=== PATIENT | male | born 1940 | race Caucasian/White ===

== ENCOUNTER 2021-09-18 09:36 | Observation (INO) ==
[2021-09-18] MEDS ORDERED: SODIUM CHLORIDE 0.9% 1000ML 1,000 ML IV SCH (09:45)
[2021-09-18] MEDS ORDERED: MAGNESIUM SULFATE / D5W 1 GM/100 ML BAG IV STA (09:46)
[2021-09-18] MEDS ORDERED: dilTIAZem HCl 5 MG/ML 5 ML VIAL IV STA ×2 (09:46→11:38)
--- NOTE | 2021-09-18 10:00 | Emergency Department Note ---
Impression & Plan Atrial fibrillation with rapid ventricular response, Heart palpitations ED Provider Note NAME: JINA CONLEY AGE: 81 SEX: M : 1940 ARRIVES VIA: Walk-In INFORMANT: Patient, ED PROVIDER(S): Alcon Warren DO CHIEF COMPLAINT: Palpitations HPI: The patient is an 81-year-old male who presented to the emergency department for an evaluation of palpitations. The patient started noticing palpitations over the last 2 to 3 weeks. He states he is also noticed some dizziness. He states he checked his heart rate and he was going [id number] bpm. He does not have any history of dysrhythmia in the past. He called his primary care physician today because of ongoing symptoms and was referred to the emergency department for further evaluation. The patient does not use alcohol excessively. He does not have a history of electrolyte abnormality or thyroid dysfunction. The patient states that he took medication for erectile dysfunction this morning at approximately 730. He denies having any fever. ROS: See above HPI for pertinent positives & negatives. A total of 10 systems r eviewed and were otherwise negative. PAST MEDICAL HISTORY: See Below PAST SURGICAL HISTORY: See Below FAMILY HISTORY: See Below SOCIAL HISTORY: See Below HOME MEDICATIONS: See Below ALLERGIES: See Below VITALS: See Below PHYSICAL EXAMINATION: GENERAL: Patient is awake alert in no acute distress patient is resting comfortably and showing no signs of anxiety EYES: The conjunctivae are clear. The pupils are round and reactive. EARS, NOSE, MOUTH AND THROAT: The nose is without any evidence of any deformity. Mucous membranes are moist. Tongue is midline. NECK: The neck is nontender and supple. RESPIRATORY: Normal respiratory effort is noted there is no evidence of wheezing rhonchi or rales CARDIOVASCULAR: Tachycardic and irregular heart sounds are noted auscultation. There is no definite murmur. GASTROINTESTINAL: The abdomen is soft. Abdomen is nontender. MUSCULOSKELETAL/EXTREMITIES: There is no evidence of gross deformity full range of motion is noted in the hips and shoulders. SKIN: There is no obvious evidence of any rash. There are no petechiae, pallor or cyanosis noted. NEUROLOGIC: Patient is awake alert and oriented x3 MEDICAL DECISION MAKING: The patient is an 81-year-old male who presented to the emergency department for an evaluation of palpitations. The patient states that he has been noticing symptoms for approximate 1 week. He had worsening symptoms today especially with exertion. He presented to the emergency department and was found to be in rapid atrial flutter/fibrillation. The patient was treated with IV fluids IV magnesium and IV Cardizem in the emergency department. He was reevaluated multiple times. I discussed the patient's laboratory and radiographic studies with him. I also discussed his case with the on-call [facility] hospitalist. They have agreed to evaluate the patient in the emergency department for further management and disposition. They will likely start the patient on a course of anticoagulation given his age and comorbidities. Triage Nursing notes reviewed. Prior medical records reviewed Vital Signs: reviewed and remarkable for tachycardia and hypertension. Differential diagnosis: Premature contractions, electrolyte abnormality, cardiac dysrhythmia, thyroid dysfunction, pulmonary embolism, infection, gastrointestinal, as well as other pathologies. ER treatment provided: See below Diagnostics interpreted by me: ECG: EKG was obtained in the emergency department. My interpretation is atrial fibrillation at 145 bpm. No PVCs were noted. Right bundle branch block pattern was noted. This was compared to a tracing from June 19, 2019. Sinus rhythm has been replaced with atrial fibrillation. The right bundle branch block pattern does not appear to be new. Cardiac Monitoring: An order was placed for continuous cardiac monitoring. The monitor shows a rate of 104 bpm with atrial fibrillation/flutter with RVR Laboratory studies: As stated above and show below. Imaging studies: See below Consultation(s): I discussed this case with Dr. Pantoja who is on-call for the [facility] [place] talist group. Past Med/Surg History Medical History BPH (benign prostatic hyperplasia) Right rotator cuff tear Umbilical hernia Surgical History H/O vasectomy History of left cataract surgery History of right cataract surgery Hx laparoscopic cholecystectomy Hx of local excision of skin lesion CALCIUM LUMP IN CALF Social History Smoking Status: Former smoker Second Hand Exposure: No; Do You Dip or Chew Tobacco: No; Tobacco Cessation Education Requested by Patient: No Hx Alcohol Use: Yes Alcohol type: wine Hx Substance Use: No Preferred Language: Bahraini Communication Ability: Effective Visual Impairment: No Limitations Condemnation Engineer Required: No Beliefs That Will Affect Care: None Current Living Situation: Spouse Other Information That Helps Us Care for You: No Feels Safe at Home: Yes Safety Concerns: Feels Safe At This Time Assistive Devices: Contacts Allergies Allergies Allergy/AdvReac Type Severity Reaction Status Date / Time bee venom protein (honey bee) Allergy Unknown HIVES/EDEMA Verified 09/18/21 12:13 simvastatin Allergy Unknown GI SYMPTOMS Verified 09/18/21 12:13 Home Meds Home Medications Medication Instructions Recorded Confirmed multivitamin (Daily Multi-Vitamin) 1 tab PO DAILY 06/02/19 09/18/21 Previous Rx's Medication Instructions Recorded sildenafil (pulm.hypertension) 20 20 mg PO DAILY #60 tab 05/31/21 mg tablet apixaban 5 mg tablet (Eliquis) 5 mg PO BID #60 tab 09/19/21 metoprolol succinate 100 mg 100 mg PO DAILY #30 tab 09/19/21 tablet,extended release 24 hr Results & Data (ED) Vital Signs Vital Signs - 24 hr 09/18/21 11:30 09/18/21 11:31 Pulse Rate 128 H 114 H Pulse Rate from SpO2 Sensor 78 Respiratory Rate 19 15 Blood Pressure 124/92 Blood Pressure Mean 102 Home Medications Current Medication List: was personally reviewed by me Laboratory Data Attestation: I reviewed the patient's lab results. Result diagrams: 09/18/21 09:55 09/18/21 09:55 Lab Results 09/18/21 09/18/21 09/18/21 Range/Units 09:55 09:55 09:55 WBC 6.66 (4.8-10.8) K/uL RBC 4.51 L (4.7-6.1) M/uL Hgb 13.9 L (14.0-18.0) g/dL Hct 41.6 L (42-52) % MCV 92.2 (80-100) fL MCH 30.8 (25-34) pg MCHC 33.4 (32-36) g/dL RDW Std Deviation 46.0 (36.4-46.3) fL RDW Coeff of Rustam 13.6 (11.5-14.5) % Plt Count 153 (130-400) K/uL MPV 10.5 H (7.4-10.4) fL Immature Gran % (Auto) 0.2 % Neut % (Auto) 64.1 % Lymph % (Auto) 24.5 % [place] % (Auto) 9.3 % Eos % (Auto) 1.7 % Baso % (Auto) 0.2 % Neut # (Auto) 4.28 (1.4-6.5) K/uL Lymph # (Auto) 1.63 (1.2-3.4) K/uL [place] # (Auto) 0.62 H (0.11-0.59) K/uL Eos # (Auto) 0.11 (0-0.5) K/uL Baso # (Auto) 0.01 (0-0.2) K/uL Immature Gran # (Auto) 0.01 (0.00-0.02) K/uL PT 11.1 (9.0-12.0) Seconds INR 1.0 (0.9-1.1) APTT 25.6 (21.0-31.0) Seconds PTT Ratio 0.9 Sodium 138 (136-145) mmol/L Potassium 4.4 (3.5-5.1) mmol/L Chloride 105 (98-107) mmol/L Carbon Dioxide 26 (21-32) mmol/L Anion Gap 7 (3-11) BUN 12 (6-23) mg/dl Creatinine 1.20 (0.6-1.4) mg/dl Est Cr Clr Drug Dosing 43.6 ml/min Est GFR ( Amer) 65.3 ml/min Est GFR (Non-Af Amer) 56.4 ml/min BUN/Creatinine Ratio 10.0 (10-20) Glucose 175 H (70-99(Fasting)) mg/dl Calcium 9.0 (8.5-10.1) mg/dl Magnesium 1.9 (1.7-2.4) mg/dl Total Bilirubin 0.5 (0.2-1.0) mg/dl AST 23 (13-39) U/L ALT 20 (7-52) U/L Alkaline Phosphatase 92 (34-104) U/L Troponin I High Sens 10.1 (0-20) pg/ml Total Protein 6.9 (6.0-8.3) gm/dl Albumin 4.2 (3.4-5.0) gm/dl Globulin 2.7 (2.5-4.0) gm/dl Albumin/Globulin Ratio 1.6 (0.9-2) TSH (0.300-4.500) uIu/ml SARS-CoV-2, RNA, NAAT (NEGATIVE) 09/18/21 09/18/21 Range/Units 09:55 10:30 WBC (4.8-10.8) K/uL RBC (4.7-6.1) M/uL Hgb (14.0-18.0) g/dL Hct (42-52) % MCV (80-100) fL MCH (25-34) pg MCHC (32-36) g/dL RDW Std Deviation (36.4-46.3) fL RDW Coeff of Rustam (11.5-14.5) % Plt Count (130-400) K/uL MPV (7.4-10.4) fL Immature Gran % (Auto) % Neut % (Auto) % Lymph % (Auto) % [place] % (Auto) % Eos % (Auto) % Baso % (Auto) % Neut # (Auto) (1.4-6.5) K/uL Lymph # (Auto) (1.2-3.4) K/uL [place] # (Auto) (0.11-0.59) K/uL Eos # (Auto) (0-0.5) K/uL Baso # (Auto) (0-0.2) K/uL Immature Gran # (Auto) (0.00-0.02) K/uL PT (9.0-12.0) Seconds INR (0.9-1.1) APTT (21.0-31.0) Seconds PTT Ratio Sodium (136-145) mmol/L Potassium (3.5-5.1) mmol/L Chloride (98-107) mmol/L Carbon Dioxide (21-32) mmol/L Anion Gap (3-11) BUN (6-23) mg/dl Creatinine (0.6-1.4) mg/dl Est Cr Clr Drug Dosing ml/min Est GFR ( Amer) ml/min Est GFR (Non-Af Amer) ml/min BUN/Creatinine Ratio (10-20) Glucose (70-99(Fasting)) mg/dl Calcium (8.5-10.1) mg/dl Magnesium (1.7-2.4) mg/dl Total Bilirubin (0.2-1.0) mg/dl AST (13-39) U/L ALT (7-52) U/L Alkaline Phosphatase (34-104) U/L Troponin I High Sens (0-20) pg/ml Total Protein (6.0-8.3) gm/dl Albumin (3.4-5.0) gm/dl Globulin (2.5-4.0) gm/dl Albumin/Globulin Ratio (0.9-2) TSH 1.928 (0.300-4.500) uIu/ml SARS-CoV-2, RNA, NAAT NEGATIVE (NEGATIVE) Administered Medications Apixaban (Apixaban 5 Mg Tablet) 5 mg PO BID RADHA Stop: 10/18/21 20:59 Last Admin: 09/19/21 08:24 Dose: 5 mg Documented by: [id number] Admin: 09/18/21 20:40 Dose: 5 mg Documented by: [id number] Metoprolol Succinate (Metoprolol Succ 50mg Ext Rel Tab) 100 mg PO QAM RADHA Stop: 10/19/21 08:59 Last Admin: 09/19/21 09:01 Dose: 100 mg Documented by: [id number] Discontinued Medications Apixaban (Apixaban 2.5 Mg Tab) 5 mg PO ONE STA Stop: 09/18/21 12:00 Last Admin: 09/18/21 12:30 Dose: 5 mg Documented by: [id number] Diltiazem HCl (Diltiazem Hcl 5 Mg/Ml 5 Ml Vial) 10 mg IV NOW STA Stop: 09/18/21 09:47 Last Admin: 09/18/21 10:20 Dose: 10 mg Documented by: [id number] Cosigned by: [id number] Diltiazem HCl (Diltiazem Hcl 5 Mg/Ml 5 Ml Vial) 10 mg IV NOW STA Stop: 09/18/21 11:39 Last Admin: 09/18/21 11:48 Dose: 10 mg Documented by: [id number] Cosigned by: [id number] Sodium Chloride (Nss 1000ml) 1,000 mls @ 999 mls/hr IV .Q1H1M RADHA Stop: 09/18/21 10:45 Last Infusion: 09/18/21 11:22 Dose: 0 mls/hr Documented by: [id number] Admin: 09/18/21 10:20 Dose: 999 mls/hr Documented by: [id number] Magnesium Sulfate/Dextrose (Magnesium Sulfate / D5w) 1 gm in 100 mls @ 100 mls/hr IV NOW STA Stop: 09/18/21 10:45 Last Infusion: 09/18/21 11:20 Dose: 0 mls/hr Documented by: [id number] Admin: 09/18/21 10:20 Dose: 100 mls/hr Documented by: [id number] Metoprolol Tartrate (Metoprolol Tartrate 25 Mg Tab) 25 mg PO ONE STA Stop: 09/18/21 12:00 Last Admin: 09/18/21 12:30 Dose: 25 mg Documented by: [id number] Metoprolol Tartrate (Metoprolol Tartrate 25 Mg Tab) 25 mg PO Q6H RADHA Stop: 10/18/21 17:59 Last Admin: 09/19/21 05:49 Dose: 25 mg Documented by: [id number] Admin: 09/18/21 23:55 Dose: 25 mg Documented by: [id number] Admin: 09/18/21 18:02 Dose: 25 mg Documented by: [id number] Imaging Data Radiologist's Impression: Chest X-Ray 09/18/21 09:44 SINGLE VIEW CHEST CLINICAL HISTORY: Generalized weakness. FINDINGS: An AP, portable, upright chest radiograph is compared to study dated 03/07/2021. The heart is mildly enlarged. The pulmonary vasculature is noncongested. Chronic interstitial thickening is similar to previous. No airspace consolidation or large pleural effusion is identified. No pneumothorax is seen. The skeletal structures are osteopenic. The bony thorax is grossly intact. Degenerative changes noted in the shoulders and thoracic spine. There is calcific tendinopathy of the left shoulder. IMPRESSION: No acute cardiopulmonary abnormality. ACT 112: Negative or not required by law. Electronically signed by: David Gaston M.D. 09/18/2021 10:49 AM Discharge Plan Visit Data Chief Complaint: Tachycardia Stated Complaint: TACHYCARDIA ED Provider: Alcon Warren Discharge Problem: Atrial fibrillation with rapid ventricular response, Heart palpitations Patient Disposition: Admitted As Inpatient Discharge Instructions Interventions: ED Discharge Assessment Last Done: 09/18/21 14:19
[2021-09-18 10:09] LABS: Basophils # (auto) 0.01 K/uL (0-0.2); Basophils % (auto) 0.2 %; Eosinophils # (auto) 0.11 K/uL (0-0.5); Eosinophils % (auto) 1.7 %; Hematocrit (blood only) 41.6 % (42-52); Hemoglobin 13.9 g/dL (14.0-18.0); Immature Granulocytes # (auto) 0.01 K/uL (0.00-0.02); Immature Granulocytes % (auto) 0.2 %; Lymphocytes # (auto) 1.63 K/uL (1.2-3.4); Lymphocytes % (auto) 24.5 %; Mean Corpuscular Hemoglobin 30.8 pg (25-34); Mean Corpuscular Hgb Conc 33.4 g/dL (32-36); Mean Corpuscular Volume 92.2 fL (80-100); Mean Platelet Volume 10.5 fL (7.4-10.4); Monocytes # (auto) 0.62 K/uL (0.11-0.59); Monocytes % (auto) 9.3 %; Neutrophils # (auto) 4.28 K/uL (1.4-6.5); Neutrophils % (auto) 64.1 %; Platelet Count 153 K/uL (130-400); RDW Coefficient of Variation 13.6 % (11.5-14.5); Red Blood Count 4.51 M/uL (4.7-6.1); White Blood Count 6.66 K/uL (4.8-10.8)
[2021-09-18 10:25] LABS: Partial Thromboplastin Ratio 0.9; Partial Thromboplastin Time 25.6 Seconds (21.0-31.0); Prothrombin Time 11.1 Seconds (9.0-12.0)
[2021-09-18 10:34] LABS: Troponin I High Sensitivity 10.1 pg/ml (0-20)
[2021-09-18 10:35] LABS: Albumin Globulin Ratio 1.6 (0.9-2); Albumin Level 4.2 gm/dl (3.4-5.0); Bilirubin,Total 0.5 mg/dl (0.2-1.0); Creatinine Clr Calc Pharmacy 43.6 ml/min; Est GFR (African American) 65.3 ml/min; Est GFR (Non-African American) 56.4 ml/min; Globulin 2.7 gm/dl (2.5-4.0); Magnesium 1.9 mg/dl (1.7-2.4); Potassium 4.4 mmol/L (3.5-5.1); Total Protein 6.9 gm/dl (6.0-8.3)
--- NOTE | 2021-09-18 10:52 | XRay Report ---
SINGLE VIEW CHEST CLINICAL HISTORY: Generalized weakness. FINDINGS: An AP, portable, upright chest radiograph is compared to study dated 03/07/2021. The heart i s mildly enlarged. The pulmonary vasculature is noncongested. Chronic interstitial thickening is leonor lar to previous. No airspace consolidation or large pleural effusion is identified. No pneumothorax i s seen. The skeletal structures are osteopenic. The bony thorax is grossly intact. Degenerative cook es noted in the shoulders and thoracic spine. There is calcific tendinopathy of the left shoulder. IMPRESSION: No acute cardiopulmonary abnormality. ACT 112: Negative or not required by law. Electronically signed by: David Gaston M.D. 09/18/2021 10:49 AM
[2021-09-18] MEDS ORDERED: METOPROLOL TARTRATE 25 MG TAB PO STA (11:59)
[2021-09-18] MEDS ORDERED: APIXABAN 2.5 MG TAB PO STA (11:59)
--- NOTE | 2021-09-18 12:12 | History & Physical Report ---
Date of Service September 18, 2021 Assessment & Plan (1) Atrial fibrillation with RVR: Plan: Metoprolol 25 mg p.o. every 6 hourly, metoprolol 5 mg IV every 4 hourly as needed for heart rate greater than 120. [id number] -recommend anticoagulation with Eliquis 5 mg p.o. twice daily first dose now. Admit to PCU as may need intravenous diltiazem TTE TSH WNL Plan: VTE prophylaxis -Eliquis Diet -heart healthy Disposition -admit to PCU Admission and Anticipated Discharge Date Admission Date: September 18, 2021 History of Present Illness Chief Complaint: Elevated heart rate Primary Care Provider: Liz Landeros DO Mat Aparicio is an 81 year old male who presents to the ER with increased heart rate for the last 6 days. He noticed this on his blood pressure monitor which also measures his heart rate. He denies any chest pain, shortness of breath, palpitations, orthopnea, PND, claudication, presyncope or syncope. No recent infection symptoms. He has no prior diagnosis of any heart conditions or atrial fibrillation. In the ER he was noted to be in atrial fibrillation with rapid ventricular rates. He was given diltiazem 10 mg IV x2 with improvement of his rates and occasional sinus beats to 90 bpm. He was referred to medicine for admission ongoing management of atrial fibrillation with rapid ventricular rate. Allergies Allergy/AdvReac Type Severity Reaction Status Date / Time bee venom protein (honey bee) Allergy Unknown HIVES/EDEMA Verified 09/18/21 12:13 simvastatin Allergy Unknown GI SYMPTOMS Verified 09/18/21 12:13 Home Medications Medication Instructions Recorded Confirmed Type multivitamin (Daily Multi-Vitamin) 1 tab PO DAILY 06/02/19 09/18/21 History sildenafil (pulm.hypertension) 20 20 mg PO DAILY #60 tab 05/31/21 09/18/21 Rx mg tablet Past Med/Surg History Medical History BPH (benign prostatic hyperplasia) Right rotator cuff tear Umbilical hernia Surgical History H/O vasectomy History of left cataract surgery History of right cataract surgery Hx laparoscopic cholecystectomy Hx of local excision of skin lesion CALCIUM LUMP IN CALF Social History Smoking Status: Former smoker Second Hand Exposure: No; Do You Dip or Chew Tobacco: No; Tobacco Cessation Education Requested by Patient: No Hx Alcohol Use: Yes Alcohol type: wine Hx Substance Use: No Preferred Language: Danish Communication Ability: Effective Visual Impairment: No Limitations Manager Floral Required: No Beliefs That Will Affect Care: None Current Living Situation: Spouse Other Information That Helps Us Care for You: No Feels Safe at Home: Yes Safety Concerns: Feels Safe At This Time Assistive Devices: Contacts Review of Systems Review of Systems: All systems reviewed & are unremarkable except as noted in HPI & below Physical Exam Constitutional: WD/WN, vitals as above ENMT: external ear and nose normal, oropharynx normal Neck: trachea midline, no thyromegaly Respiratory: normal respiratory effort, lungs clear to auscultation Cardiovascular: Rate/Rhythm: regular rate and + irregularly irregular Heart Sounds: no murmur Extremities: normal capillary refill; no calf tenderness and no pedal edema Gastrointestinal (Abdomen): normal bowel sounds, soft, nontender, no hepatosplenomegaly Musculoskeletal: no cyanosis or clubbing, extremities motor strength 5/5 Skin: no rashes, warm and dry Neurologic: moves all extremities and awake; not confused Psychiatric: A+Ox3, euthymic affect Results & Data Results & Data ([facility]) Vital Signs (Past 12 Hours) Vital Signs Temp Pulse Resp BP Pulse Ox 09/18/21 11:31 114 H 15 124/92 09/18/21 11:30 128 H 19 09/18/21 11:00 120 H 16 147/80 H 94 09/18/21 10:30 103 H 15 128/76 09/18/21 10:00 150 H 18 97 09/18/21 09:38 36.8 C 150 H 18 144/83 H 97 Code Status & VTE Plan Code Status Full VTE Prophylaxis Plan VTE Prophylaxis will be ordered: Yes PG Care Time/CCT Total # of Minutes Spent Total Time Spent with Patient: Total time spent is greater than 50% in coordination of care (as documented) at patient's floor/unit and/or counseling patient: Coding Level of Care Code INT OBSERVATION CARE 50M LVL 2 Diagnoses Atrial fibrillation with RVR I48.91
--- NOTE | 2021-09-18 13:09 | Electrocardiogram Report ---
Test Reason : Blood Pressure : / mmHG Vent. Rate : 145 BPM Atrial Rate : 300 BPM P-R Int : 000 ms QRS Dur : 120 ms QT Int : 298 ms P-R-T Axes : 000 -43 -26 degrees QTc Int : 462 ms Atrial flutter with variable A-V block with premature ventricular or aberrantly conducted complexes Left axis deviation Low voltage QRS Right bundle branch block Abnormal ECG Confirmed by Jose So ([id number]) on 09/18/2021 1:08:50 PM Referred By: Confirmed By:Graeme So
--- NOTE | 2021-09-18 17:28 | XCELERA ---
[id number]
[2021-09-18] MEDS: METOPROLOL TARTRATE 25 MG TAB PO SCH ×2 (18:02→23:55)
[2021-09-18] MEDS: APIXABAN 5 MG TABLET PO SCH (20:40)
[2021-09-19] MEDS: METOPROLOL TARTRATE 25 MG TAB PO SCH (05:49)
[2021-09-19] MEDS: APIXABAN 5 MG TABLET PO SCH (08:24)
[2021-09-19] MEDS ORDERED: METOPROLOL SUCC 50MG EXT REL TAB PO SCH (09:00)
--- NOTE | 2021-09-19 16:43 | Discharge Summary ---
Date of Service September 19, 2021 Admission HPI Per Admitting Provider Mat Aparicio is an 81 year old male who presents to the ER with increased heart rate for the last 6 days. He noticed this on his blood pressure monitor which also measures his heart rate. He denies any chest pain, shortness of breath, palpitations, orthopnea, PND, claudication, presyncope or syncope. No recent infection symptoms. He has no prior diagnosis of any heart conditions or atrial fibrillation. In the ER he was noted to be in atrial fibrillation with rapid ventricular rates. He was given diltiazem 10 mg IV x2 with improvement of his rates and occasional sinus beats to 90 bpm. He was referred to medicine for admission ongoing management of atrial fibrillation with rapid ventricular rate. Principal Diagnosis New atrial fibrillation Discharge Exam Constitutional WD/WN, vitals as above Eyes EOM intact bilaterally; no conjunctival abnormality ENMT external ear and nose normal, oropharynx normal Neck trachea midline, no thyromegaly normal visual inspection Respiratory normal respiratory effort, lungs clear to auscultation no respiratory distress Cardiovascular Rate/Rhythm: regular rate and + irregularly irregular Extremities: no edema Gastrointestinal (Abdomen) Inspection/Auscultation: abdomen normal to inspection; abdomen not distended Musculoskeletal no cyanosis or clubbing, extremities motor strength 5/5 Skin no rashes, warm and dry Neurologic moves all extremities and awake Psychiatric Orientation: alert, oriented to person and cooperative Discharge Data Allergies Allergy/AdvReac Type Severity Reaction Status Date / Time bee venom protein (honey bee) Allergy Unknown HIVES/EDEMA Verified 09/18/21 12:13 simvastatin Allergy Unknown GI SYMPTOMS Verified 09/18/21 12:13 Consultations 09/18/21 11:47 ED Decision to Admit Stat Hospital Course (1) Atrial fibrillation with RVR: Metoprolol 25 mg p.o. every 6 hourly, metoprolol 5 mg IV every 4 hourly as needed for heart rate greater than 120. TSH WNL. [id number] -recommend anticoagulation with Eliquis 5 mg p.o. twice daily TTE on 09/18 showed EF was 50 - 55%. - Discharged on metoprolol XL 100 mg PO daily with good rate control. Will f/u with cardiology as outpatient. VTE prophylaxis -Eliquis Diet -heart healthy Disposition -admit to PCU Total Time Total Time Spent Total Time Spent (In Minutes): 35 Discharge Plan Discharge Items Patient Disposition: Home - Self-Care Reason For Visit: A FIB WITH RVR Discharge Diagnosis: Atrial fibrillation with fast heart rate Activity: Resume your previous activity Non-emergency contact: Primary Care Provider Call non-emergency contact if: your symptoms worsen Follow-up/Referrals: Calvin An DO [Physician] - (Please see Dr. An or Emily Lion in the office in the next 1-2 weeks for follow-up of your atrial fibrillation.) Liz Landeros DO [Primary Care Provider] - (Follow up appointment scheduled with Dr. Holloway.) Anatoly Holloway [Hospitalist] - 09/26/21 10:50 am (Please follow up with Dr. Holloway on Saturday09/26/21 at 10:50 am. Please arrive to the office at 10:35 am for your appointment. If you are unable to keep this appointment, please call the office to reschedule at [phone].) Diet: Regular Addtl Attending Provider Instructions: Mr. Aparicio, You were admitted to the hospital with a fast heart rate called atrial fibrillation. Most often, this rhythm occurs without a specific reason, and that's what we're seeing with you. Luckily, [facility] We have controlled your heart rate with a medication called metoprolol which is a once a day medication. To avoid blood clots, we have started apixaban which thins the blood. Please take this medication two times per day. Please see Dr. Calvin An or Emily Lion, DRAGLINE OILER at the [facility] Cardiology office to be sure they have no further needs for your heart. Pending Studies at Discharge: No Stand-Alone Forms: [facility], Smoking Cessation Medications and DC Order Prescriptions: New Eliquis 5 mg Tablet 5 mg PO BID Qty: 60 RF: 0 metoprolol succinate 100 mg tablet extended release 24 hr 100 mg PO DAILY Qty: 30 RF: 0 Continued sildenafil (pulm.hypertension) 20 mg tablet 20 mg PO DAILY Qty: 60 RF: 11 multivitamin [Daily Multi-Vitamin] Tablet 1 tab PO DAILY RF: 0 Discharge Orders: Discharge Order (Routine); Ordered 09/19/21 Ordered By: Agustin Hyatt Admission Data Admit Date/Time: 09/18/21 12:09 Attending Provider: Agustin Hyatt Admit Provider: Enrique Pantoja Primary Care Provider: Liz Landeros Other Providers: Agustin Hyatt Other Interventions: Discharge Summary Assessment (RN) Last Done: 09/19/21 11:49 Coding Level of Care Code 34663 OBS Care - Discharge Diagnoses Atrial fibrillation with RVR I48.91
== END 2021-09-19 12:25 | disposition home or self-care (01) ==
LOC: ED 09:36 → 1E 09:36 → SUATTDRO 12:09 → 1E 14:19 → 2S 09-19 02:46